=== PATIENT | male | born 1940 | race Caucasian/White ===

== ENCOUNTER 2019-04-17 09:19 | Inpatient (IN) ==
[2019-04-18] MEDS ORDERED: Acetaminophen 325 MG TABLET PO PRN (17:02)
[2019-04-18] MEDS ORDERED: Ergocalciferol (VIT D2) 50,000 UNIT (1.25MG) CAP PO SCH (17:15)
[2019-04-18] MEDS: Melatonin 3 MG TABLET PO PRN (21:43)
[2019-04-19 05:03] LABS: Basophils % 0.4 %; Eosinophils # 0.3 K/mcL (0.0-0.6); Eosinophils % 3.7 %; Hematocrit 35.1 % (37.5-50.1); Hemoglobin 12.3 g/dL (12.9-16.9); Immature Granulocytes % 0.6 % (0-4); Lymphocytes % 14.1 %; Mean Corpuscular Hemoglobin 32.7 pg (28.0-33.3); Mean Corpuscular Volume 93.4 fL (83.0-100.0); Mean Platelet Volume 9.9 fL (9.4-12.4); Monocytes # 0.7 K/mcL (0.0-1.3); Monocytes % 9.6 %; Platelet Count 131 K/mcL (140-400); Red Blood Count 3.76 M/mcL (4.19-5.50); Red Cell Distribution Width 12.2 % (11.5-14.5); Segmented Neutrophils % 71.6 %
[2019-04-19 06:01] LABS: BUN/Creatinine Ratio 19 (6-26); Blood Urea Nitrogen 16 mg/dL (8-23); Carbon Dioxide 29 mEq/L (23-29); Chloride 100 mEq/L (98-107); Glucose 118 mg/dL (70-105); Osmolality,Calculated 282 (280-300); Potassium 3.7 mEq/L (3.5-5.1); Sodium 135 mEq/L (136-145); eGFR For African Americans > 60 (> 60); eGFR For Non-African Americans > 60 (> 60)
[2019-04-19] MEDS: *HR* Enoxaparin 40 MG/0.4 ML SYRINGE SQ SCH (08:44)
[2019-04-19] MEDS: Aspirin Enteric Coated 81 MG Tablet PO SCH (08:45)
[2019-04-19] MEDS: Cholecalciferol (D-3) 1,000 UNIT (25MCG) TABLET PO SCH (08:45)
[2019-04-19] MEDS: Melatonin 3 MG TABLET PO PRN (20:05)
[2019-04-20] MEDS: Aspirin Enteric Coated 81 MG Tablet PO SCH (08:52)
[2019-04-20] MEDS: Cholecalciferol (D-3) 1,000 UNIT (25MCG) TABLET PO SCH (08:52)
[2019-04-20] MEDS: *HR* Enoxaparin 40 MG/0.4 ML SYRINGE SQ SCH (08:53)
[2019-04-20] MEDS ORDERED: cloNIDine HCl 0.1 MG TABLET PO PRN (20:57)
[2019-04-20] MEDS: Melatonin 3 MG TABLET PO PRN (21:12)
[2019-04-20] MEDS: *HR* OxyCODONE Immed Rel 5 MG TABLET PO PRN (21:12)
[2019-04-21] MEDS: Cholecalciferol (D-3) 1,000 UNIT (25MCG) TABLET PO SCH (08:45)
[2019-04-21] MEDS: *HR* OxyCODONE Immed Rel 5 MG TABLET PO PRN ×2 (08:45→21:30)
[2019-04-21] MEDS: Aspirin Enteric Coated 81 MG Tablet PO SCH (08:46)
[2019-04-21] MEDS: *HR* Enoxaparin 40 MG/0.4 ML SYRINGE SQ SCH (08:46)
[2019-04-21] MEDS: Lisinopril 20 MG TABLET PO SCH (08:46)
[2019-04-21] MEDS: Melatonin 3 MG TABLET PO PRN (21:31)
[2019-04-22] MEDS: *HR* Enoxaparin 40 MG/0.4 ML SYRINGE SQ SCH (09:14)
[2019-04-22] MEDS: Aspirin Enteric Coated 81 MG Tablet PO SCH (09:39)
[2019-04-22] MEDS: Cholecalciferol (D-3) 1,000 UNIT (25MCG) TABLET PO SCH (09:39)
[2019-04-22] MEDS: Lisinopril 20 MG TABLET PO SCH (09:40)
[2019-04-22] MEDS: *HR* OxyCODONE Immed Rel 5 MG TABLET PO PRN ×2 (09:54→21:24)
[2019-04-22] MEDS: Melatonin 3 MG TABLET PO PRN (21:24)
[2019-04-23 06:57] VITALS: BP 154/85
[2019-04-23] MEDS: Aspirin Enteric Coated 81 MG Tablet PO SCH (10:05)
[2019-04-23] MEDS: Lisinopril 20 MG TABLET PO SCH (10:06)
[2019-04-23] MEDS: Cholecalciferol (D-3) 1,000 UNIT (25MCG) TABLET PO SCH (10:06)
== END 2019-04-24 10:17 | disposition short-term general hospital (02) | DRG 566 ==
LOC: INPGRE 04-18 16:17
PROVIDERS: ADMIT Family Medicine; ATTEND Family Medicine

== ENCOUNTER 2019-04-24 10:32 | Inpatient (IN) ==
[2019-04-26 05:21] LABS: Basophils % 0.5 %; Eosinophils # 0.1 K/mcL (0.0-0.6); Eosinophils % 2.2 %; Hematocrit 33.3 % (37.5-50.1); Hemoglobin 11.6 g/dL (12.9-16.9); Immature Granulocytes % 0.5 % (0-4); Lymphocytes # 0.9 K/mcL (0.6-4.6); Mean Corpuscular HGB Conc 34.8 g/dL (31.6-35.5); Mean Corpuscular Hemoglobin 32.1 pg (28.0-33.3); Mean Corpuscular Volume 92.2 fL (83.0-100.0); Mean Platelet Volume 9.8 fL (9.4-12.4); Monocytes # 0.5 K/mcL (0.0-1.3); Monocytes % 8.5 %; Neutrophils # 4.7 K/mcL (1.6-8.9); Platelet Count 199 K/mcL (140-400); Red Blood Count 3.61 M/mcL (4.19-5.50); Red Cell Distribution Width 11.7 % (11.5-14.5); Segmented Neutrophils % 74.3 %; White Blood Count 6.4 K/mcL (4.3-11.1)
[2019-04-26 05:39] LABS: BUN/Creatinine Ratio 19 (6-26); Blood Urea Nitrogen 15 mg/dL (8-23); Carbon Dioxide 27 mEq/L (23-29); Chloride 100 mEq/L (98-107); Glucose 106 mg/dL (70-105); Osmolality,Calculated 277 (280-300); Potassium 3.6 mEq/L (3.5-5.1); Sodium 133 mEq/L (136-145); eGFR For African Americans > 60 (> 60); eGFR For Non-African Americans > 60 (> 60)
[2019-04-26] MEDS: *HR* Enoxaparin 40 MG/0.4 ML SYRINGE SQ SCH (06:34)
[2019-04-26] MEDS ORDERED: Bisacodyl 10 MG RECTAL SUPPOSITORY RC PRN (08:52)
[2019-04-26] MEDS ORDERED: Sennosides 8.6 MG TABLET PO SCH (09:00)
[2019-04-26] MEDS: Lisinopril 20 MG TABLET PO SCH (09:47)
[2019-04-26] MEDS: Aspirin Enteric Coated 81 MG Tablet PO SCH (09:47)
[2019-04-26] MEDS: Cholecalciferol (D-3) 1,000 UNIT (25MCG) TABLET PO SCH (09:48)
[2019-04-26] MEDS: *HR* OxyCODONE Immed Rel 5 MG TABLET PO PRN ×2 (09:49→22:20)
[2019-04-26] MEDS: Melatonin 3 MG TABLET PO SCH (22:20)
[2019-04-27] MEDS: *HR* Enoxaparin 40 MG/0.4 ML SYRINGE SQ SCH (06:44)
[2019-04-27] MEDS: Cholecalciferol (D-3) 1,000 UNIT (25MCG) TABLET PO SCH (09:43)
[2019-04-27] MEDS: Aspirin Enteric Coated 81 MG Tablet PO SCH (09:43)
[2019-04-27] MEDS: *HR* OxyCODONE Immed Rel 5 MG TABLET PO PRN (09:43)
[2019-04-27] MEDS: Lisinopril 20 MG TABLET PO SCH (09:44)
[2019-04-27] MEDS: Melatonin 3 MG TABLET PO SCH (20:13)
[2019-04-28] MEDS: *HR* Enoxaparin 40 MG/0.4 ML SYRINGE SQ SCH (04:43)
[2019-04-28] MEDS: Cholecalciferol (D-3) 1,000 UNIT (25MCG) TABLET PO SCH (08:24)
[2019-04-28] MEDS: Lisinopril 20 MG TABLET PO SCH (08:24)
[2019-04-28] MEDS: Aspirin Enteric Coated 81 MG Tablet PO SCH (08:24)
[2019-04-28] MEDS: *HR* OxyCODONE Immed Rel 5 MG TABLET PO PRN ×2 (09:44→20:16)
[2019-04-28] MEDS: Melatonin 3 MG TABLET PO SCH (20:16)
[2019-04-29] MEDS: *HR* Enoxaparin 40 MG/0.4 ML SYRINGE SQ SCH (05:24)
[2019-04-29] MEDS: Lisinopril 20 MG TABLET PO SCH (08:27)
[2019-04-29] MEDS: Aspirin Enteric Coated 81 MG Tablet PO SCH (08:27)
[2019-04-29] MEDS: Cholecalciferol (D-3) 1,000 UNIT (25MCG) TABLET PO SCH (08:27)
[2019-04-29] MEDS: *HR* OxyCODONE Immed Rel 5 MG TABLET PO PRN ×2 (09:32→20:42)
[2019-04-29] MEDS: Melatonin 3 MG TABLET PO SCH (20:42)
[2019-04-30 05:33] LABS: Hematocrit 37.1 % (37.5-50.1); Hemoglobin 12.4 g/dL (12.9-16.9); Mean Corpuscular HGB Conc 33.4 g/dL (31.6-35.5); Mean Corpuscular Hemoglobin 31.5 pg (28.0-33.3); Mean Corpuscular Volume 94.2 fL (83.0-100.0); Mean Platelet Volume 9.3 fL (9.4-12.4); Platelet Count 271 K/mcL (140-400); Red Blood Count 3.94 M/mcL (4.19-5.50); White Blood Count 6.9 K/mcL (4.3-11.1)
[2019-04-30 05:36] LABS: INR 1.4; Prothrombin Time 16.1 Seconds (9.4-12.1)
[2019-04-30 05:47] LABS: Alanine Aminotransferase 54 Units/L (7-52); Albumin/Globulin Ratio 1.4 (1.1-2.2); Alkaline Phosphatase 88 Units/L (34-104); Aspartate Amino Transferase 26 Units/L (13-39); BUN/Creatinine Ratio 17 (6-26); Bilirubin,Total 1.1 mg/dL (0.3-1.0); Blood Urea Nitrogen 15 mg/dL (8-23); Calcium 9.4 mg/dL (8.6-10.3); Carbon Dioxide 29 mEq/L (23-29); Chloride 100 mEq/L (98-107); Globulin 2.8 g/dL (2.4-3.5); Glucose 106 mg/dL (70-105); Magnesium 2.5 mg/dL (1.6-2.6); Osmolality,Calculated 281 (280-300); Potassium 4.7 mEq/L (3.5-5.1); Sodium 135 mEq/L (136-145); Total Protein 6.8 g/dL (6.4-8.9); eGFR For African Americans > 60 (> 60); eGFR For Non-African Americans > 60 (> 60)
[2019-04-30] MEDS: *HR* Enoxaparin 40 MG/0.4 ML SYRINGE SQ SCH (06:00)
[2019-04-30] MEDS: Aspirin Enteric Coated 81 MG Tablet PO SCH (08:55)
[2019-04-30] MEDS: Lisinopril 20 MG TABLET PO SCH (08:55)
[2019-04-30] MEDS: Cholecalciferol (D-3) 1,000 UNIT (25MCG) TABLET PO SCH (08:55)
[2019-04-30] MEDS: Acetaminophen 325 MG TABLET PO PRN (09:51)
[2019-04-30] MEDS: *HR* OxyCODONE Immed Rel 5 MG TABLET PO PRN ×3 (09:51→20:12)
[2019-04-30] MEDS: Melatonin 3 MG TABLET PO SCH (20:12)
[2019-05-01] MEDS: *HR* OxyCODONE Immed Rel 5 MG TABLET PO PRN (05:12)
[2019-05-01] MEDS: *HR* Enoxaparin 40 MG/0.4 ML SYRINGE SQ SCH (11:29)
[2019-05-01] MEDS: Lisinopril 20 MG TABLET PO SCH (11:29)
[2019-05-01] MEDS: Cholecalciferol (D-3) 1,000 UNIT (25MCG) TABLET PO SCH (11:30)
[2019-05-01] MEDS: Aspirin Enteric Coated 81 MG Tablet PO SCH (11:30)
[2019-05-01] MEDS: Acetaminophen 325 MG TABLET PO PRN (21:22)
[2019-05-01] MEDS: Melatonin 3 MG TABLET PO SCH (21:23)
[2019-05-02] MEDS: *HR* Enoxaparin 40 MG/0.4 ML SYRINGE SQ SCH (05:49)
[2019-05-02] MEDS: Aspirin Enteric Coated 81 MG Tablet PO SCH (08:02)
[2019-05-02] MEDS: Cholecalciferol (D-3) 1,000 UNIT (25MCG) TABLET PO SCH (08:03)
[2019-05-02] MEDS: Acetaminophen 325 MG TABLET PO PRN (08:03)
[2019-05-02] MEDS: Lisinopril 20 MG TABLET PO SCH (08:03)
[2019-05-02] MEDS: Melatonin 3 MG TABLET PO SCH (21:47)
[2019-05-02] MEDS: *HR* OxyCODONE Immed Rel 5 MG TABLET PO PRN (21:47)
[2019-05-03] MEDS: *HR* OxyCODONE Immed Rel 5 MG TABLET PO PRN ×2 (06:07→18:24)
[2019-05-03] MEDS: *HR* Enoxaparin 40 MG/0.4 ML SYRINGE SQ SCH (06:08)
[2019-05-03] MEDS: Cholecalciferol (D-3) 1,000 UNIT (25MCG) TABLET PO SCH (08:49)
[2019-05-03] MEDS: Aspirin Enteric Coated 81 MG Tablet PO SCH (08:50)
[2019-05-03] MEDS: Lisinopril 20 MG TABLET PO SCH (08:50)
[2019-05-03] MEDS: Melatonin 3 MG TABLET PO SCH (20:58)
[2019-05-04] MEDS: *HR* Enoxaparin 40 MG/0.4 ML SYRINGE SQ SCH (04:49)
[2019-05-04 06:19] LABS: Hemoglobin 12.3 g/dL (12.9-16.9); Mean Corpuscular HGB Conc 33.2 g/dL (31.6-35.5); Mean Corpuscular Hemoglobin 31.3 pg (28.0-33.3); Mean Corpuscular Volume 94.1 fL (83.0-100.0); Mean Platelet Volume 8.8 fL (9.4-12.4); Platelet Count 270 K/mcL (140-400); Red Blood Count 3.93 M/mcL (4.19-5.50); Red Cell Distribution Width 11.9 % (11.5-14.5); White Blood Count 6.2 K/mcL (4.3-11.1)
[2019-05-04 06:37] LABS: Alanine Aminotransferase 43 Units/L (7-52); Albumin/Globulin Ratio 1.5 (1.1-2.2); Alkaline Phosphatase 103 Units/L (34-104); Aspartate Amino Transferase 21 Units/L (13-39); BUN/Creatinine Ratio 12 (6-26); Bilirubin,Total 0.6 mg/dL (0.3-1.0); Blood Urea Nitrogen 11 mg/dL (8-23); Calcium 9.1 mg/dL (8.6-10.3); Carbon Dioxide 26 mEq/L (23-29); Chloride 99 mEq/L (98-107); Globulin 2.6 g/dL (2.4-3.5); Glucose 116 mg/dL (70-105); Magnesium 2.5 mg/dL (1.6-2.6); Osmolality,Calculated 270 (280-300); Potassium 3.7 mEq/L (3.5-5.1); Sodium 130 mEq/L (136-145); Total Protein 6.6 g/dL (6.4-8.9); eGFR For African Americans > 60 (> 60); eGFR For Non-African Americans > 60 (> 60)
[2019-05-04] MEDS: Lisinopril 20 MG TABLET PO SCH (08:35)
[2019-05-04] MEDS: Cholecalciferol (D-3) 1,000 UNIT (25MCG) TABLET PO SCH (08:35)
[2019-05-04] MEDS: Aspirin Enteric Coated 81 MG Tablet PO SCH (08:35)
[2019-05-04] MEDS: Acetaminophen 325 MG TABLET PO PRN (08:39)
[2019-05-04] MEDS: Melatonin 3 MG TABLET PO SCH (20:01)
[2019-05-04] MEDS: *HR* OxyCODONE Immed Rel 5 MG TABLET PO PRN (20:04)
[2019-05-05] MEDS: *HR* Enoxaparin 40 MG/0.4 ML SYRINGE SQ SCH (05:41)
[2019-05-05] MEDS: Acetaminophen 325 MG TABLET PO PRN (08:05)
[2019-05-05] MEDS: Cholecalciferol (D-3) 1,000 UNIT (25MCG) TABLET PO SCH (08:05)
[2019-05-05] MEDS: Lisinopril 20 MG TABLET PO SCH (08:05)
[2019-05-05] MEDS: Aspirin Enteric Coated 81 MG Tablet PO SCH (08:05)
[2019-05-05] MEDS ORDERED: Melatonin 3 MG TABLET PO SCH (21:00)
[2019-05-05] MEDS: Melatonin 3 MG TABLET PO PRN (21:35)
[2019-05-05] MEDS: traZODone 50 MG TABLET PO PRN (21:35)
[2019-05-06] MEDS: *HR* OxyCODONE Immed Rel 5 MG TABLET PO PRN ×3 (05:21→22:17)
[2019-05-06] MEDS: *HR* Enoxaparin 40 MG/0.4 ML SYRINGE SQ SCH (05:22)
[2019-05-06] MEDS: Cholecalciferol (D-3) 1,000 UNIT (25MCG) TABLET PO SCH (07:38)
[2019-05-06] MEDS: Aspirin Enteric Coated 81 MG Tablet PO SCH (07:38)
[2019-05-06] MEDS: Lisinopril 20 MG TABLET PO SCH (07:38)
[2019-05-06] MEDS: traZODone 50 MG TABLET PO PRN (20:29)
[2019-05-06] MEDS: Melatonin 3 MG TABLET PO PRN (20:29)
[2019-05-07] MEDS: *HR* OxyCODONE Immed Rel 5 MG TABLET PO PRN ×2 (05:58→20:29)
[2019-05-07] MEDS: *HR* Enoxaparin 40 MG/0.4 ML SYRINGE SQ SCH (05:58)
[2019-05-07] MEDS: Aspirin Enteric Coated 81 MG Tablet PO SCH (07:46)
[2019-05-07] MEDS: Lisinopril 20 MG TABLET PO SCH (07:46)
[2019-05-07] MEDS: Cholecalciferol (D-3) 1,000 UNIT (25MCG) TABLET PO SCH (07:46)
[2019-05-07] MEDS: Acetaminophen 325 MG TABLET PO PRN (19:36)
[2019-05-07] MEDS: traZODone 50 MG TABLET PO PRN (20:29)
[2019-05-07] MEDS: Melatonin 3 MG TABLET PO PRN (20:29)
[2019-05-08] MEDS: *HR* Enoxaparin 40 MG/0.4 ML SYRINGE SQ SCH (05:33)
[2019-05-08] MEDS: Acetaminophen 325 MG TABLET PO PRN (05:33)
[2019-05-08] MEDS: Cholecalciferol (D-3) 1,000 UNIT (25MCG) TABLET PO SCH (07:49)
[2019-05-08] MEDS: Aspirin Enteric Coated 81 MG Tablet PO SCH (07:49)
[2019-05-08] MEDS: Lisinopril 20 MG TABLET PO SCH (07:49)
[2019-05-08] MEDS: traZODone 50 MG TABLET PO PRN (21:29)
[2019-05-08] MEDS: *HR* OxyCODONE Immed Rel 5 MG TABLET PO PRN (21:30)
[2019-05-08] MEDS: Melatonin 3 MG TABLET PO PRN (21:30)
[2019-05-09] MEDS: *HR* Enoxaparin 40 MG/0.4 ML SYRINGE SQ SCH (05:08)
[2019-05-09] MEDS: Acetaminophen 325 MG TABLET PO PRN ×3 (06:12→19:10)
[2019-05-09] MEDS: Lisinopril 20 MG TABLET PO SCH (08:54)
[2019-05-09] MEDS: Cholecalciferol (D-3) 1,000 UNIT (25MCG) TABLET PO SCH (08:54)
[2019-05-09] MEDS: Aspirin Enteric Coated 81 MG Tablet PO SCH (08:54)
[2019-05-09] MEDS: *HR* OxyCODONE Immed Rel 5 MG TABLET PO PRN (21:21)
[2019-05-09] MEDS: Melatonin 3 MG TABLET PO PRN (21:21)
[2019-05-09] MEDS: traZODone 50 MG TABLET PO PRN (21:22)
[2019-05-10] MEDS: Acetaminophen 325 MG TABLET PO PRN ×2 (01:31→09:21)
[2019-05-10] MEDS: *HR* Enoxaparin 40 MG/0.4 ML SYRINGE SQ SCH (05:30)
[2019-05-10 06:57] VITALS: BP 121/69
[2019-05-10] MEDS: Lisinopril 20 MG TABLET PO SCH (09:21)
[2019-05-10] MEDS: Cholecalciferol (D-3) 1,000 UNIT (25MCG) TABLET PO SCH (09:21)
[2019-05-10] MEDS: Aspirin Enteric Coated 81 MG Tablet PO SCH (09:21)
== END 2019-05-10 13:30 | disposition home health service (06) | DRG 560 ==
LOC: INPGRE 04-25 19:23
PROVIDERS: ADMIT Family Medicine; ATTEND Family Medicine

== ENCOUNTER 2021-06-17 14:58 | Inpatient (IN) ==
[2021-06-18] MEDS ORDERED: Furosemide 20 MG TABLET PO PRN (12:46)
[2021-06-18] MEDS ORDERED: Acetaminophen 325 MG TABLET PO PRN (12:46)
[2021-06-18] MEDS: *HR* HYDROcodone/Acet 5/325 mg TABLET PO PRN (20:22)
[2021-06-19 04:44] LABS: Basophils % 0.3 %; Eosinophils # 0.2 K/mcL (0.0-0.6); Eosinophils % 2.2 %; Hematocrit 32.2 % (37.5-50.1); Hemoglobin 11.2 g/dL (12.9-16.9); Immature Granulocytes % 0.4 % (0-4); Lymphocytes # 1.3 K/mcL (0.6-4.6); Lymphocytes % 17.5 %; Mean Corpuscular HGB Conc 34.8 g/dL (31.6-35.5); Mean Corpuscular Hemoglobin 31.4 pg (28.0-33.3); Mean Corpuscular Volume 90.2 fL (83.0-100.0); Mean Platelet Volume 9.1 fL (9.4-12.4); Monocytes # 0.8 K/mcL (0.0-1.3); Monocytes % 11.1 %; Neutrophils # 4.9 K/mcL (1.6-8.9); Platelet Count 157 K/mcL (140-400); Red Blood Count 3.57 M/mcL (4.19-5.50); Red Cell Distribution Width 12.4 % (11.5-14.5); Segmented Neutrophils % 68.5 %; White Blood Count 7.1 K/mcL (4.3-11.1)
[2021-06-19 04:58] LABS: BUN/Creatinine Ratio 16 (6-26); Blood Urea Nitrogen 17 mg/dL (8-23); Calcium 8.9 mg/dL (8.6-10.3); Carbon Dioxide 29 mEq/L (23-29); Chloride 100 mEq/L (98-107); Glucose 100 mg/dL (70-105); Osmolality,Calculated 282 (280-300); Potassium 4.5 mEq/L (3.5-5.1); Sodium 135 mEq/L (136-145); eGFR For African Americans > 60 (> 60); eGFR For Non-African Americans > 60 (> 60)
[2021-06-19] MEDS: *HR* HYDROcodone/Acet 5/325 mg TABLET PO PRN ×3 (07:23→20:28)
[2021-06-19] MEDS: *HR* Enoxaparin 40 MG/0.4 ML SYRINGE SQ SCH (07:24)
[2021-06-19] MEDS: Aspirin Enteric Coated 81 MG Tablet PO SCH (08:18)
[2021-06-19] MEDS: amLODIPine 5 MG TABLET PO SCH (08:19)
[2021-06-19] MEDS: Cholecalciferol (D-3) 1,000 UNIT (25MCG) TABLET PO SCH (08:19)
[2021-06-19] MEDS: Ascorbic Acid 500 MG TABLET PO SCH (08:20)
[2021-06-19] MEDS: lisinopriL 5 MG TABLET PO SCH (08:20)
[2021-06-19] MEDS: Nitroglycerin 0.4 MG TAB.SUBL SL SCH (08:21)
[2021-06-20] MEDS: *HR* Enoxaparin 40 MG/0.4 ML SYRINGE SQ SCH (06:13)
[2021-06-20] MEDS: Aspirin Enteric Coated 81 MG Tablet PO SCH (08:27)
[2021-06-20] MEDS: Cholecalciferol (D-3) 1,000 UNIT (25MCG) TABLET PO SCH (08:27)
[2021-06-20] MEDS: lisinopriL 5 MG TABLET PO SCH (08:28)
[2021-06-20] MEDS: Ascorbic Acid 500 MG TABLET PO SCH (08:29)
[2021-06-20] MEDS: amLODIPine 5 MG TABLET PO SCH (08:29)
[2021-06-20] MEDS: Nitroglycerin 0.4 MG TAB.SUBL SL SCH (08:30)
[2021-06-20] MEDS: *HR* HYDROcodone/Acet 5/325 mg TABLET PO PRN (09:34)
[2021-06-20] MEDS: polyethylene glycoL 3350 17 GM POWD.PACK PO SCH (13:40)
[2021-06-21] MEDS: *HR* Enoxaparin 40 MG/0.4 ML SYRINGE SQ SCH (05:51)
[2021-06-21] MEDS: *HR* HYDROcodone/Acet 5/325 mg TABLET PO PRN ×3 (05:58→19:13)
[2021-06-21] MEDS: Aspirin Enteric Coated 81 MG Tablet PO SCH (07:51)
[2021-06-21] MEDS: amLODIPine 5 MG TABLET PO SCH (07:52)
[2021-06-21] MEDS: Nitroglycerin 0.4 MG TAB.SUBL SL SCH (07:52)
[2021-06-21] MEDS: Cholecalciferol (D-3) 1,000 UNIT (25MCG) TABLET PO SCH (07:52)
[2021-06-21] MEDS: Ascorbic Acid 500 MG TABLET PO SCH (07:52)
[2021-06-21] MEDS: polyethylene glycoL 3350 17 GM POWD.PACK PO SCH (07:52)
[2021-06-21] MEDS: lisinopriL 20 MG TABLET PO SCH (08:02)
[2021-06-21] MEDS ORDERED: Nitroglycerin 0.4 MG TAB.SUBL SL PRN (14:16)
[2021-06-22] MEDS: *HR* Enoxaparin 40 MG/0.4 ML SYRINGE SQ SCH (05:44)
[2021-06-22] MEDS: amLODIPine 5 MG TABLET PO SCH (10:16)
[2021-06-22] MEDS: *HR* HYDROcodone/Acet 5/325 mg TABLET PO PRN ×3 (10:16→20:57)
[2021-06-22] MEDS: Ascorbic Acid 500 MG TABLET PO SCH (10:16)
[2021-06-22] MEDS: Aspirin Enteric Coated 81 MG Tablet PO SCH (10:16)
[2021-06-22] MEDS: Cholecalciferol (D-3) 1,000 UNIT (25MCG) TABLET PO SCH (10:16)
[2021-06-22] MEDS: lisinopriL 20 MG TABLET PO SCH (10:16)
[2021-06-22] MEDS: polyethylene glycoL 3350 17 GM POWD.PACK PO SCH (10:17)
[2021-06-23] MEDS: *HR* HYDROcodone/Acet 5/325 mg TABLET PO PRN (04:57)
[2021-06-23] MEDS: *HR* Enoxaparin 40 MG/0.4 ML SYRINGE SQ SCH (04:57)
[2021-06-23 06:49] VITALS: BP 123/67; PULSE 100; RESP 15; TEMP 97.7; O2SAT 96
[2021-06-23] MEDS: lisinopriL 20 MG TABLET PO SCH (08:20)
[2021-06-23] MEDS: amLODIPine 5 MG TABLET PO SCH (08:20)
[2021-06-23] MEDS: polyethylene glycoL 3350 17 GM POWD.PACK PO SCH (08:20)
[2021-06-23] MEDS: Aspirin Enteric Coated 81 MG Tablet PO SCH (08:20)
[2021-06-23] MEDS: Cholecalciferol (D-3) 1,000 UNIT (25MCG) TABLET PO SCH (08:20)
[2021-06-23] MEDS: Ascorbic Acid 500 MG TABLET PO SCH (08:20)
== END 2021-06-23 15:56 | disposition home health service (06) | DRG 561 ==
LOC: INPGRE 06-18 11:36
PROVIDERS: ADMIT Family Medicine; ATTEND Family Medicine